=== PATIENT | female | born 1975 | race African-American/Black ===

== ENCOUNTER 2019-03-26 13:22 | Emergency (ER) | payer OTHER ==
[~2019-03-26] VITALS: Ht 165.1 cm; Wt 81.0 kg
[2019-03-26] MEDS ORDERED: HYDR12.529 PO (14:29)
[2019-03-26] MEDS ORDERED: AMLODIPINE 5MG TABLET PO ONE (16:00)
[2019-03-26] MEDS ORDERED: IBUPROFEN 400MG TABLET PO ONE (16:00)
[2019-03-26 16:29] LABS: BASOPHILS % 0.7 % (0.0-2.0); EOSINOPHILS % 0.9 % (0.0-5.0); HEMATOCRIT. 38.9 % (36.0-48.0); HEMOGLOBIN. 13.2 g/dL (12.0-16.0); MEAN CORPUSCULAR HEMOGLOBIN 35.2 pg (28.0-32.0); MEAN CORPUSCULAR VOLUME 103.6 fL (81.0-99.0); MONOCYTES % 7.3 % (2.0-8.0); NEUTROPHILS % 59.1 % (40.0-76.0); PLATELET 275 x1000/uL (130-400); RED BLOOD CELL COUNT 3.75 mill/uL (4.2-5.4); RED CELL DISTRIBUTION WIDTH 13.8 % (11.6-14.6)
[2019-03-26 16:32] LABS: CHLORIDE 104 mEq/L (98-107)
[2019-03-26 16:41] LABS: HCG SCREEN NEGATIVE
[2019-03-26] MEDS ORDERED: CLONIDINE 0.2MG TABLET PO ONE (17:45)
[2019-03-26 18:55] VITALS: BP 155/90
== END 2019-03-26 18:56 | disposition home or self-care (01) ==
LOC: ER 13:22
DX: I10 Essential (primary) hypertension (principal); R51 Headache; Z79.899 Other long term (current) drug therapy
CPT/HCPCS: 36415; 84703; 93005; 99284